=== PATIENT | female | born 1985 | race African-American/Black ===

== ENCOUNTER 2019-02-05 07:24 | Inpatient (IN) | payer MEDICAID, OTHER ==
[2019-02-05] MEDS: KETAMINE HCL (50 MG/ML) 1ml syringe IV (07:59)
[2019-02-05] MEDS: ONDANSETRON 4 MG INJ IV ×3 (07:59→11:43)
[2019-02-05 08:42] LABS: ADD UMIC NO; UR ASCORBIC ACID NEGATIVE (NEGATIVE); UR BACTERIA FEW /HPF (NONE SEEN); UR BILIRUBIN (Dip) NEGATIVE (NEGATIVE); UR BLOOD (Dip) NEGATIVE (NEGATIVE); UR CLARITY SLIGHTLY CLOUDY (CLEAR); UR COLOR YELLOW (YELLOW); UR GLUCOSE (Dip) NEGATIVE (NEGATIVE); UR KETONES (Dip) NEGATIVE (NEGATIVE); UR LEUKOCYTE ESTERASE (Dip) NEGATIVE Leu/ul (NEGATIVE); UR MUCUS MODERATE /HPF (NONE SEEN); UR NITRITE (Dip) NEGATIVE (NEGATIVE); UR RBC 1 /HPF (0-5); UR SQUAMOUS EPITHELIAL CELL MODERATE /HPF (FEW); UR TOTAL PROTEIN (Dip) NEGATIVE (NEGATIVE); UR UROBILINOGEN (Dip) 2+ mg/dL (NEGATIVE); UR WBC 2 /HPF (0-5)
[2019-02-05] MEDS: HYDROmorphONE 2 MG/ML SYG IM (08:46)
[2019-02-05] MEDS: SOD CHLORIDE 0.9% 1,000 ML IV (10:08)
[2019-02-05] MEDS: HYDROmorphONE 2 MG/ML SYG IV ×2 (10:09→11:43)
[2019-02-05 10:22] LABS: ADD MAN DIFF? NO
[2019-02-05 10:26] LABS: WHITE BLOOD COUNT 5.8 10^3/ul (4.8-10.8)
[2019-02-05 10:26] LABS: ABNORMAL IP MESSAGE 1; BASOPHILS % 0.7 % (0.0-2.0); EOSINOPHILS # 0.2 10^3/ul (0.0-0.5); EOSINOPHILS % 2.6 % (0.0-7.0); HEMATOCRIT 32.9 % (37.0-47.0); HEMOGLOBIN 9.4 g/dl (12.0-16.0); LYMPHOCYTES # 1.2 10^3/ul (0.8-2.9); LYMPHOCYTES % 21.5 % (15.0-51.0); MEAN CORPUSCULAR HEMOGLOBIN 21.3 pg (29.0-33.0); MEAN CORPUSCULAR HGB CONC 28.6 g/dl (32.0-37.0); MEAN CORPUSCULAR VOLUME 74.6 fl (82.0-101.0); MEAN PLATELET VOLUME 9.9 fl (7.4-10.4); MONOCYTE # 0.3 10^3/ul (0.3-0.9); NEUTROPHILS % 69.9 % (39.0-77.0); PLATELET COUNT 610 10^3/UL (140-415); RED BLOOD COUNT 4.41 10^6/ul (4.20-5.40); RED CELL DISTRIBUTION WIDTH 23.7 % (11.5-14.5)
[2019-02-05 10:32] LABS: POSITIVE DIFF @See below
[2019-02-05 10:48] LABS: CARBON DIOXIDE 29 mmol/L (21-31); CHLORIDE 104 mmol/L (97-110); POTASSIUM 3.6 mmol/L (3.5-5.1); SODIUM 140 mmol/L (135-144)
[2019-02-05 10:49] LABS: ALANINE AMINOTRANSFERASE 27 IU/L (13-69); ALBUMIN/GLOBULIN RATIO 1.33; ALKALINE PHOSPHATASE 101 IU/L (42-121); ANION GAP 7 (5-13); ASPARTATE AMINO TRANSFERASE 30 IU/L (15-46); BILIRUBIN,INDIRECT 0.6 mg/dl (0-1.1); BILIRUBIN,TOTAL 0.6 mg/dl (0.2-1.3); BLOOD UREA NITROGEN 10 mg/dl (7-20); CALCIUM 9.1 mg/dl (8.4-10.2); Estimated GFR > 60 mL/min (>60); GLUCOSE 84 mg/dl (70-220); LIPASE 98 U/L (23-300)
[2019-02-05] MEDS ORDERED: ONDANSETRON 4 MG INJ IV ×2 (13:00→14:30)
[2019-02-05] MEDS ORDERED: ACETAMINOPHEN 325 MG TAB PO (13:00)
[2019-02-05] MEDS ORDERED: DOCUSATE SODIUM 100 MG CAP PO (14:30)
[2019-02-05] MEDS ORDERED: clonAZEPAM 0.5 MG TAB PO (14:30)
[2019-02-05] MEDS ORDERED: ZOLPIDEM 5 MG TAB PO (14:30)
[2019-02-05] MEDS ORDERED: KETOROLAC 15 MG INJ IV (14:30)
[2019-02-05] MEDS ORDERED: ALBUTEROL/IPRATROPIUM (NEB) 3 ML AMP HHN (14:30)
[2019-02-05] MEDS ORDERED: NACL 0.9% 3 ML SYG IV (14:30)
[2019-02-05] MEDS ORDERED: METOCLOPRAMIDE 10 MG TAB PO (14:30)
[2019-02-05] MEDS ORDERED: PROMETHAZINE 25 MG TAB PO (14:30)
[2019-02-05] MEDS ORDERED: ONDANSETRON 4 MG TAB PO (14:30)
[2019-02-05] MEDS ORDERED: NS + KCL 20 MEQ 1,000 ML IV (15:00)
[2019-02-05] MEDS ORDERED: SUCRALFATE 1 GM TAB PO (17:30)
[2019-02-06] MEDS ORDERED: PANTOPRAZOLE SODIUM 20 MG TABEC PO (09:00)
[2019-02-06] MEDS ORDERED: CHOLECALCIFEROL 1,000 UNIT TAB PO (09:00)
[2019-02-06] MEDS ORDERED: predniSONE 10 MG TAB PO (09:00)
[2019-02-06] MEDS ORDERED: DOCUSATE SODIUM 100 MG CAP PO (09:00)
[2019-02-06] MEDS ORDERED: FERROUS SULFATE (EC) 325 MG TAB PO (09:00)
== END 2019-02-05 18:00 | disposition left against medical advice (07) | DRG 379 ==
LOC: E/R 07:24 → 2NE 12:33
DX: K62.5 Hemorrhage of anus and rectum (principal); Z76.5 Malingerer [conscious simulation]; M32.9 Systemic lupus erythematosus, unspecified; D50.9 Iron deficiency anemia, unspecified; Z98.84 Bariatric surgery status; M35.00 Sjogren syndrome, unspecified; R10.9 Unspecified abdominal pain
CPT/HCPCS: 36415; 74176; 80053; 81001; 81003; 81025; 83690; 85025; 96374; 96375; 96376; 99285-25